=== PATIENT | female | born 1970 | race Caucasian/White ===

== ENCOUNTER → 2016-10-13 | Outpatient (CLI) | payer OTHER ==
[~2016-10-13] MED LIST: ASACOL HD800 M1 PO; ASACOL400 MG PO; CARAFATE1 G1 PO; CIPRO500 MG PO; CORTENEMA R; CORTIZONE-10 MAXIM11 R; DEPAKOTE500 M1 PO; GLUCOTROL5 MG PO; MAPAP PO; MULTIVITAMINS1 EACH PO; OMEPRAZOLE D/R20 MG PO; SYNTHROID,LEVO50 MCG PO; VITAMIN D32000 UNI1 PO; ZOCOR20 MG PO; ZOFRAN ODT8 MG PO; Zofran4 MG PO
== END | disposition home or self-care (01) ==
LOC: US 14:09
DX: M79.604 Pain in right leg (principal)

== ENCOUNTER → 2016-12-14 | Day surgery (SDC) | payer OTHER ==
[~2016-12-14] VITALS: Ht 157.4 cm; Wt 92.5 kg
--- NOTE | ~2016-12-14 | O ---
[place], [place] OPERATIVE NOTE NAME: АНДРЕЙ BERMUDEZ UNIT #: [id number] ROOM: DOCTOR: CAPO DOVERKRISTINA BIRTHDATE: [birth year] DOS: 12/14/2016 GASTROENDOSCOPIC REPORT INDICATIONS: A 46-year-old patient who has presented with chief complaint of history of ulcerative colitis, history of chronic gastritis. The patient has been on Carafate and omeprazole 20 mg b.i.d. and Carafate 1 g b.i.d. ALLERGIES: SULFA, ERYTHROMYCIN, AND PENICILLIN. PAST MEDICAL HISTORY: Ulcerative colitis, seizure, diabetes mellitus, hypothyroidism. PAST SURGICAL HISTORY: Tonsillectomy, adenoidectomy, and colectomy. Today's procedure part of investigation is panendoscopy plus biopsy for abnormal radiological findings recently and concerns about above. The patient off mesalamine. The patient continues with PPI and sucralfate therapy. Status post colostomy. PROCEDURE: Today's procedure part of investigation is panendoscopy plus biopsy. PREMEDICATION: Versed and Diprivan. SCOPE: Olympus forward-viewing gastroscope Q10 video. REPORT: After putting the patient in the left lateral position and after application of lubricant to the scope, the scope was introduced. Thereafter, under direct visualization, I advanced through the length of the esophagus without difficulty. Esophagus, cervical, thoracic and distal within normal limits. Gastric pouch was entered after a 2 cm hiatal hernia was encountered. Gastritis was noticed. This is mild and mostly concentrated in the antrum. Duodenal bulb was entered, pyloric ring within normal limits. Second and third part of duodenum normal. Air was suctioned out. Antral biopsy obtained. The patient extubated, tolerated procedure well. IMPRESSION: Mild gastritis, mostly concentrated in the antrum, status post biopsy, small hiatal hernia 2 cm size. Otherwise, normal gastric pouch, normal duodenum, normal esophagus. PLAN AND DISCUSSION: Continuation with omeprazole 20 mg 1 b.i.d. and Carafate 1 b.i.d., regular diet as tolerated. FOLLOWUP: As outpatient. Awaiting biopsy results. No concerns of pathology was noticed in upper GI tract otherwise. [place], [place] OPERATIVE NOTE NAME: АНДРЕЙ BERMUDEZ UNIT #: [id number] ROOM: DOCTOR: CAPO DOVER,KRISTINA BIRTHDATE: [birth year] KRISTINA SCANLON MD CM:OPRECORD:OPERATIVE NOTE 6 19 KRISTINA SCANLON MD 12/14/16 1120 interface
[2016-12-14 08:15] VITALS: BP 122/84
[2016-12-14 09:14] VITALS: BP 120/68
[2016-12-14 09:27] VITALS: BP 119/78
[2016-12-14 09:43] VITALS: BP 120/77
== END | disposition home or self-care (01) ==
LOC: SDC 12-08 15:30
DX: K29.50 Unspecified chronic gastritis without bleeding (principal); K44.9 Diaphragmatic hernia without obstruction or gangrene; E11.9 Type 2 diabetes mellitus without complications; K21.9 Gastro-esophageal reflux disease without esophagitis; E03.9 Hypothyroidism, unspecified; Z98.890 Other specified postprocedural states; Z90.49 Acquired absence of other specified parts of digestive tract; Z88.2 Allergy status to sulfonamides; Z88.1 Allergy status to other antibiotic agents; Z88.0 Allergy status to penicillin; Z87.19 Personal history of other diseases of the digestive system; E78.00 Pure hypercholesterolemia, unspecified; H91.90 Unspecified hearing loss, unspecified ear; J45.909 Unspecified asthma, uncomplicated; Z85.038 Personal history of other malignant neoplasm of large intestine; Z83.3 Family history of diabetes mellitus; Z82.49 Family history of ischemic heart disease and other diseases of the circulatory system

== ENCOUNTER 2017-03-04 17:46 | Emergency (ER) | payer OTHER ==
[~2017-03-04] VITALS: Ht 157.4 cm; Wt 90.7 kg
[2017-03-04] MEDS ORDERED: HORIZANT300 M1 PO (18:14)
[2017-03-04 18:30] LABS: BASO % 0.6 % (0.0-1.0); EOS % 0.6 % (1.0-4.0); HEMATOCRIT 36.3 % (37.0-47.0); HEMOGLOBIN 11.9 g/dl (12.0-16.0); LYMPH # 1.4 10*3/uL (1.3-4.4); LYMPH % 29.1 % (27.0-41.0); MEAN CELL VOLUME 90.5 fl (81.0-99.0); MEAN CORPUSCULAR HGB 29.7 pg (27.0-31.0); MEAN CORPUSCULAR HGB CONC 32.8 g/dl (33.0-37.0); MEAN PLATELET VOLUME 10.1 fl (9.6-12.3); MONO # 0.3 10*3/uL (0.1-1.0); MONO % 6.4 % (3.0-9.0); NEUT % 62.9 % (47.0-73.0); PLATELET COUNT AUTOMATED 168 10*3/uL (130-400); RED BLOOD COUNT 4.01 10*6/uL (4.10-5.10); WHITE BLOOD COUNT 4.8 10*3/uL (4.8-10.8)
[2017-03-04 18:46] LABS: ALKALINE PHOSPHATASE 172 U/L (45-117); BUN 13 mg/dl (7-24); CHLORIDE 109 mmol/L (98-107); CREATININE 0.89 mg/dL (0.55-1.02); POTASSIUM 3.8 mmol/L (3.5-5.1); SGOT/AST 15 IU/L (3-35); SGPT/ALT 17 U/L (12-78); SODIUM 143 mmol/L (136-145); TOTAL PROTEIN 6.7 gm/dL (6.4-8.2)
[2017-03-04 18:49] LABS: TROPONIN I < 0.015 ng/ml (<0.045)
== END 2017-03-04 21:22 | disposition home or self-care (01) ==
LOC: ED 17:46
PROVIDERS: Nurse Practitioner Family
DX: S40.012A Contusion of left shoulder, initial encounter (principal); S80.12XA Contusion of left lower leg, initial encounter; S00.532A Contusion of oral cavity, initial encounter; Z88.1 Allergy status to other antibiotic agents; Z88.0 Allergy status to penicillin; Z88.2 Allergy status to sulfonamides; Z79.899 Other long term (current) drug therapy; W10.8XXA Fall (on) (from) other stairs and steps, initial encounter; Y93.89 Activity, other specified; Y92.89 Other specified places as the place of occurrence of the external cause; Y99.8 Other external cause status

== ENCOUNTER → 2017-04-07 | Outpatient (CLI) | payer OTHER ==
[~2017-04-07] MED LIST changes: +HORIZANT300 M1 PO
== END | disposition home or self-care (01) ==
LOC: CT 00:42
DX: K76.89 Other specified diseases of liver (principal); K92.2 Gastrointestinal hemorrhage, unspecified; Z85.038 Personal history of other malignant neoplasm of large intestine; Z90.49 Acquired absence of other specified parts of digestive tract

== ENCOUNTER → 2017-10-05 | Outpatient (CLI) | payer OTHER | END | disposition home or self-care (01) | LOC: MAMMO 13:13 | DX: Z12.31 Encounter for screening mammogram for malignant neoplasm of breast (principal); Z85.038 Personal history of other malignant neoplasm of large intestine ==

== ENCOUNTER → 2017-11-01 | Day surgery (SDC) | payer OTHER ==
[~2017-11-01] VITALS: Ht 157.4 cm; Wt 99.8 kg
--- NOTE | ~2017-11-01 | O ---
[place], [place] OPERATIVE NOTE NAME: АНДРЕЙ BERMUDEZ UNIT #: [id number] ROOM: DOCTOR: CAPO DOVER,KRISTINA BIRTHDATE: [birth year] DOS: 11/01/2017 GASTROENDOSCOPIC REPORT The patient has presented with history of questionable Crohn's disease versus ulcerative colitis. For multiple years she was on mesalamine therapy. She eventually on her followup showed carcinoma in the colon. She received suspected total colectomy versus partial colectomy. She continues with some diarrhea. She has ostomy in place. She is following up with Dr. Stein with a PET scan and workup still continues. We have to stop the mesalamine therapy. The patient with history of gastritis, on Carafate and Prilosec. PROCEDURE: Today's procedure part of investigation is attempted colonoscopy, push enteroscopy. PREMEDICATION: Propofol. SCOPE: Olympus for forward and colonoscope. REPORT: After lubrication ostomy site, scope was introduced. Thereafter, under direct visualization, I advanced it was figured that the entire colon is removed and what the ostomy showing is an ileostomy with mucosa of the terminal ileum and is within normal limit and the scope was advanced about 60 cm with push enteroscopy. There was no evidence of bleeding. There was no evidence of pathology in the colon to consider presence of Crohn's disease or any other contributions of a small bowel pathology. Therefore, the patient extubated, tolerated procedure well. IMPRESSION: Status post total colectomy apparently, normal small bowel, history of colon cancer. PLAN AND DISCUSSION: The patient has been on Carafate and Prilosec while she was on mesalamine therapy, which is given her gastritis and issues related to the side effect of the mesalamine. Therefore, at this time, we are going to remove Carafate and she will be safe enough with Prilosec therapy. We do not need any further followup on her at this stage and PET scan and follow up with oncologist is going to continue, however. DIET: Going to be regular and no residual colonic anatomy is noticed on this endoscopic evaluation. [place], [place] OPERATIVE NOTE NAME: АНДРЕЙ BERMUDEZ UNIT #: [id number] ROOM: DOCTOR: CAPO DOVER,NASROLLAH BIRTHDATE: [birth year] KRISTINA SCANLON MD CM:J CARLOS:OPERATIVE NOTE [id number] KRISTINA SCANLON MD 11/01/17 1057 interface
[2017-11-01 09:28] VITALS: BP 135/79
[2017-11-01 10:25] VITALS: BP 141/100
[2017-11-01 10:55] VITALS: BP 109/69
== END | disposition home or self-care (01) ==
LOC: SDC 10-27 10:15
DX: C18.9 Malignant neoplasm of colon, unspecified (principal); R19.7 Diarrhea, unspecified; K51.90 Ulcerative colitis, unspecified, without complications; E11.9 Type 2 diabetes mellitus without complications; E78.00 Pure hypercholesterolemia, unspecified; K21.9 Gastro-esophageal reflux disease without esophagitis; J45.909 Unspecified asthma, uncomplicated; E07.9 Disorder of thyroid, unspecified; E66.09 Other obesity due to excess calories; Z98.890 Other specified postprocedural states; Z79.899 Other long term (current) drug therapy; Z88.0 Allergy status to penicillin; Z88.2 Allergy status to sulfonamides; Z98.0 Intestinal bypass and anastomosis status; Z68.41 Body mass index [BMI] 40.0-44.9, adult

== ENCOUNTER → 2018-02-06 | Outpatient (CLI) | payer OTHER ==
[~2018-02-06] MED LIST changes: +NEURONTIN300 MG PO
== END | disposition home or self-care (01) ==
LOC: MEDIPORT 04:09
DX: Z45.2 Encounter for adjustment and management of vascular access device (principal); Z88.1 Allergy status to other antibiotic agents; Z88.0 Allergy status to penicillin; Z88.2 Allergy status to sulfonamides

== ENCOUNTER → 2018-03-13 | Outpatient (CLI) | payer OTHER ==
[~2018-03-13] MED LIST changes: -NEURONTIN300 MG PO
== END | disposition home or self-care (01) ==
LOC: MEDIPORT 04:51
DX: Z45.2 Encounter for adjustment and management of vascular access device (principal); Z88.1 Allergy status to other antibiotic agents; Z88.0 Allergy status to penicillin; Z88.2 Allergy status to sulfonamides

== ENCOUNTER → 2018-04-10 | Outpatient (CLI) | payer OTHER | END | disposition home or self-care (01) | LOC: MEDIPORT 04:05 | DX: Z45.2 Encounter for adjustment and management of vascular access device (principal) ==

== ENCOUNTER 2018-04-19 09:59 | Emergency (ER) | payer OTHER ==
[~2018-04-19] VITALS: Ht 157.4 cm; Wt 102.1 kg
[2018-04-19] MEDS ORDERED: NEURONTIN300 MG PO (10:17)
== END 2018-04-19 11:27 | disposition home or self-care (01) ==
LOC: ED 09:59
DX: S49.91XA Unspecified injury of right shoulder and upper arm, initial encounter (principal); S79.911A Unspecified injury of right hip, initial encounter; Z88.0 Allergy status to penicillin; Z88.1 Allergy status to other antibiotic agents; Z88.2 Allergy status to sulfonamides; Z79.899 Other long term (current) drug therapy; W17.89XA Other fall from one level to another, initial encounter; Y93.89 Activity, other specified; Y92.242 Post office as the place of occurrence of the external cause; Y99.8 Other external cause status

== ENCOUNTER → 2018-05-10 | Outpatient (CLI) | payer OTHER ==
[~2018-05-10] MED LIST changes: +NEURONTIN300 MG PO
--- NOTE | 2018-05-10 08:27 | NUR ---
CLIENT AMBULATORY TO TREATMENT AREA FOR ROUTINE PORT FLUSH. PORT WAS PREPPED X 2 AND ACCESSED USING ASEPTIC TECHNIQUE. BRISK BLOOD RETURN WAS NOTED. PORT WAS FLUSHED WITH SALINE FOLLOWED BY HEPARIN. NEEDLE WAS WITHDRAWN AND A BANDAID APPLIED TO SITE. NO BLEEDING SEEN. CLIENT THEN AMBULATED FROM TREATMENT AREA IN STABLE CONDITION
== END | disposition home or self-care (01) ==
LOC: MEDIPORT 02:19
DX: Z45.2 Encounter for adjustment and management of vascular access device (principal)

== ENCOUNTER → 2018-06-14 | Outpatient (CLI) | payer OTHER | END | disposition home or self-care (01) | LOC: MEDIPORT 07:53 | DX: Z45.2 Encounter for adjustment and management of vascular access device (principal) ==

== ENCOUNTER → 2018-07-11 | Outpatient (CLI) | payer OTHER ==
--- NOTE | 2018-07-11 09:10 | NUR ---
PT HERE FOR MEDIPORT FLUSH PER ORDER. SITE ACCESSED WITH NONCORING NEEDLE. PROMPT BLOOD RETURN NOTED. FLUSHED WITH HEPARIN PER POLICY. TOLERATED WELL. NEEDLE REMOVED AND DRESSING APPLIED. RESCHEDULE FOR August AT 10 AM FOR NEXT FLUSH. VALENTÍN RIVAS RN
== END | disposition home or self-care (01) ==
LOC: MEDIPORT 08:49
DX: Z45.2 Encounter for adjustment and management of vascular access device (principal)

== ENCOUNTER → 2018-10-11 | Outpatient (CLI) | payer OTHER | END | disposition home or self-care (01) | LOC: MEDIPORT 08:23 | DX: Z45.2 Encounter for adjustment and management of vascular access device (principal) ==

== ENCOUNTER → 2018-11-09 | Outpatient (CLI) | payer OTHER ==
--- NOTE | 2018-11-09 10:05 | NUR ---
PATIENT AMBULATED INTO THE TREATMENT AREA WITH HER MOTHER. PATIENT'S MEDIPORT ACCESS WITH PROMPT BLOOD RETURN. FLUSHED WITH NORMAL SALINE AND THEN HEPARIN. D/C ACCESSED. SCHEDULED NEXT APPOINTMENT FOR NEXT MONTH. PATIENT AMBULATED TO EXIT. PATIENT D/C.
--- NOTE | 2018-11-09 11:44 | NUR ---
CALLED DR FERRERA'S OFFICE FOR A NEW SCRIPT FOR HER MEDIPORT FLUSH FOR NEXT MONTH. OFFICE STATED THEY WOULD EITHER FAX BEFORE THEN OR SEND WITH PATIENT AFTER HER NEXT DOCTOR'S APPOINTMEMT.
== END | disposition home or self-care (01) ==
LOC: MEDIPORT 09:53
DX: Z45.2 Encounter for adjustment and management of vascular access device (principal)

== ENCOUNTER → 2018-12-14 | Outpatient (CLI) | payer OTHER ==
--- NOTE | 2018-12-14 10:15 | NUR ---
PT MEDIPORT SITE WAS ACESSED AND FLUSHED ORDERED WITHOUT DIFFICULTY.
== END | disposition home or self-care (01) ==
LOC: MEDIPORT 10:00
DX: Z45.2 Encounter for adjustment and management of vascular access device (principal)

== ENCOUNTER → 2019-01-14 | Outpatient (CLI) | payer OTHER ==
--- NOTE | 2019-01-14 10:15 | NUR ---
PT HERE FOR MEDIPORT FLUSH ORDERED MONTHLY. [facility] [place]ED WITH NON-CORING NEEDLE BRCO1NH DIFFUCULTY. PROMPT BLOOD RETURN. HEPARIN FLUSH PER POLICY. NEEDLE REMOVED. DRESSING APPLIED. NEXT APPOINTMENT SCHEDULED. VALENTÍN RIVAS RN
== END | disposition home or self-care (01) ==
LOC: MEDIPORT 00:42
DX: Z45.2 Encounter for adjustment and management of vascular access device (principal)

== ENCOUNTER → 2019-02-11 | Outpatient (CLI) | payer OTHER ==
--- NOTE | 2019-02-11 09:54 | NUR ---
PT HERE FOR MEDIPORT FLUSH ORDERED. SITE ACCESSED WITH NONCORING NEEDLE. MEDIPORT FLUSH WITH HEPARIN PER POLICY. NEEDLE REMOVED. SITE ASYMPTOMATIC. DRESSING APPLIED. VALENTÍN RIVAS RN
== END | disposition home or self-care (01) ==
LOC: MEDIPORT 04:54
DX: Z45.2 Encounter for adjustment and management of vascular access device (principal)

== ENCOUNTER → 2019-03-11 | Outpatient (CLI) | payer OTHER ==
--- NOTE | 2019-03-11 10:01 | NUR ---
PATIENT HERE FOR MEDIPORT FLUSH ORDERED. [facility] [place] MED[place]ORT ACCESSED WITH NONCORING NEEDLE PER PP. HEPARIN FLUSH ORDERED. TOLERATED WELL. NEEDLE REMOVED. DRESSING APPLIED. VALENTÍN RIVAS RN
== END | disposition home or self-care (01) ==
LOC: MEDIPORT 00:55
DX: Z45.2 Encounter for adjustment and management of vascular access device (principal)

== ENCOUNTER → 2019-04-08 | Outpatient (CLI) | payer OTHER ==
--- NOTE | 2019-04-08 10:00 | NUR ---
Pt here for mediport flush as ordered. [facility] [place] mediport accessed with noncoring needle without diffuculty. Prompt blood return. FLUSHED with heparin per P&P. Needle removed dressing applied. Katherine Baltazar Rn
== END | disposition home or self-care (01) ==
LOC: MEDIPORT 00:52
DX: Z45.2 Encounter for adjustment and management of vascular access device (principal)

== ENCOUNTER → 2019-05-14 | Outpatient (CLI) | payer OTHER | END | disposition home or self-care (01) | LOC: MEDIPORT 02:07 | DX: Z45.2 Encounter for adjustment and management of vascular access device (principal) ==

== ENCOUNTER → 2019-06-11 | Outpatient (CLI) | payer OTHER | END | disposition home or self-care (01) | LOC: MEDIPORT 00:01 | DX: Z45.2 Encounter for adjustment and management of vascular access device (principal) ==

== ENCOUNTER → 2019-07-12 | Outpatient (CLI) | payer OTHER ==
--- NOTE | 2019-07-12 10:09 | NUR ---
1008- MEDIPORT ACCESSED WITH NON-CORING NEEDLE AFTER CLEANSING WITH CHLORPREP. PROMP BLOOD RETURN OBTAINED AND PORT FLUSHED PER POLICY. NON-CORING NEEDLE WITHDRAWN INTACT AND BANDAID APPLIED.
== END | disposition home or self-care (01) ==
LOC: MEDIPORT 06:41
DX: Z45.2 Encounter for adjustment and management of vascular access device (principal)

== ENCOUNTER → 2019-08-09 | Outpatient (CLI) | payer OTHER ==
--- NOTE | 2019-08-09 10:11 | NUR ---
PATIENT ARRIVED TO OPS WALKING W/ NO C/O. CONDITION STABLE. PATIENT FOR MEDIPORT FLUSH. PORT ACCESSED AND FLUSHED PER ORDER AND PER POLICY/PROCEDURE. SITE ASYMPTOMATIC. STERILE DRESSING APPLIED.
== END | disposition home or self-care (01) ==
LOC: MEDIPORT 00:11
DX: Z45.2 Encounter for adjustment and management of vascular access device (principal)

== ENCOUNTER → 2019-10-11 | Outpatient (CLI) | payer OTHER ==
--- NOTE | 2019-10-11 10:16 | NUR ---
PT HERE FOR MEDIPORT FLUSH ORDERED. HEPARIN PER POLICY AFTER LSC ACCESSED WITH NONCORING NEEDLE WITHOUT DIFFUCULTY. PROMTP BLOOD RETURN. FLUSHED WITH HEPARIN PER P&P. NEEDLE REMOVED. DRESSING APPLIED. PATIENT TOLERATED WELL. VALENTÍN RIVAS RN
== END | disposition home or self-care (01) ==
LOC: MEDIPORT 10:15
DX: Z45.2 Encounter for adjustment and management of vascular access device (principal)

== ENCOUNTER → 2019-11-08 | Outpatient (CLI) | payer OTHER ==
--- NOTE | 2019-11-08 13:07 | NUR ---
PT'S MEDIPORT ACCESSED. ASPERATED WITH BLOOD RETURN. FLUSHED SALINE 10 ML PT CONFIMRED OF TASTING SALINE. HEPERIN WAS FLUSHED INTO PORT AFTER SLAINE. PORT UNACCESSED AND BANDAID PUT OVER SITE. NO BLEEDING PRESENT. PT TOLERATED PROCEDURE. SCHEDULED NEXT FOR December AT NOON.
== END | disposition home or self-care (01) ==
LOC: MEDIPORT 02:06
DX: Z45.2 Encounter for adjustment and management of vascular access device (principal)

== ENCOUNTER → 2019-12-13 | Outpatient (CLI) | payer OTHER ==
--- NOTE | 2019-12-13 10:22 | NUR ---
1001- MEDIPORT ACCESSED WITH NON-CORING NEEDLE AFTER CLEANSING WITH CHLOIRAPREP. PROMPT BLOOD RETURN OBTAINED AND PORT FLUSHED PER POLICY. NON-CORING NEEDLE WITHDRAWN INTACT AND BANDAID TO SITE. DISCHARGED AMBULATORY.
== END ==
LOC: MEDIPORT 08:00
DX: Z45.2 Encounter for adjustment and management of vascular access device (principal); C80.1 Malignant (primary) neoplasm, unspecified

== ENCOUNTER → 2020-01-10 | Outpatient (CLI) | payer OTHER ==
--- NOTE | 2020-01-10 10:08 | NUR ---
1007- MEDIPORT ACCESSED WITH NON-CORING NEEDLE AFTER CLEANSING WITH CHLORAPREP. PROMPT BLOOD RETURN OBTAINED. FLUSHED PER POLICY AND NON-CORING NEEDLE WITHDRAWN INTACT. BANDAID TO SITE. DISCHARGED AMBULATORY.
== END | disposition home or self-care (01) ==
LOC: MEDIPORT 09:54
PROVIDERS: ATTEND Family Medicine
DX: Z45.2 Encounter for adjustment and management of vascular access device (principal); C80.1 Malignant (primary) neoplasm, unspecified

== ENCOUNTER → 2020-02-10 | Outpatient (CLI) | payer OTHER ==
--- NOTE | 2020-02-10 10:10 | NUR ---
TOLERATED ACCESSING, FLUSHING, AND REMOVAL WELL. MEDIPORT FOUND TO HAVE GOOD BLOOD RETURN. BAND-AIDE PLACED OVER ACCESS SITE.
== END | disposition home or self-care (01) ==
LOC: MEDIPORT 02:48
PROVIDERS: ATTEND Family Medicine
DX: Z45.2 Encounter for adjustment and management of vascular access device (principal); C80.1 Malignant (primary) neoplasm, unspecified

== ENCOUNTER → 2020-03-12 | Outpatient (CLI) | payer OTHER ==
--- NOTE | 2020-03-12 10:06 | NUR ---
1000- MEDIPORT ACCESSED AFTER CLEANSING WITH CHLORAPREP. UNABLE TO OBTAIN BLOOD RETURN BUT FLUSHED EASILY PER POLICY. NON-CORING NEEDLE WITHDRAWN INTACT AND BANDAID TO SITE.
== END | disposition home or self-care (01) ==
LOC: MEDIPORT 00:44
PROVIDERS: ATTEND Family Medicine
DX: Z45.2 Encounter for adjustment and management of vascular access device (principal); C80.1 Malignant (primary) neoplasm, unspecified

== ENCOUNTER → 2020-04-09 | Outpatient (CLI) | payer OTHER | END | disposition home or self-care (01) | LOC: MEDIPORT 03:13 | PROVIDERS: ATTEND Family Medicine | DX: Z45.2 Encounter for adjustment and management of vascular access device (principal); C80.1 Malignant (primary) neoplasm, unspecified ==

== ENCOUNTER → 2020-05-12 | Outpatient (CLI) | payer OTHER ==
--- NOTE | 2020-05-12 10:13 | NUR ---
1013- MEDIPORT ACCESSED WITH NON-CORING NEEDLE AFTER CLEANSING WITH CHLORAPREP. FLUSHED EASILY PER POLICY AND NON-CORING NEEDLE WITHDRAWN INTACT. BANDAID TO SITE AND DISCHARGED AMBULATORY.
== END | disposition home or self-care (01) ==
LOC: MEDIPORT 00:23
PROVIDERS: ATTEND Family Medicine
DX: Z45.2 Encounter for adjustment and management of vascular access device (principal); C80.1 Malignant (primary) neoplasm, unspecified

== ENCOUNTER → 2020-06-12 | Outpatient (CLI) | payer OTHER | END | disposition home or self-care (01) | LOC: MEDIPORT 06-09 10:00 | PROVIDERS: ATTEND Family Medicine | DX: Z45.2 Encounter for adjustment and management of vascular access device (principal); C80.1 Malignant (primary) neoplasm, unspecified ==

== ENCOUNTER → 2020-07-10 | Outpatient (CLI) | payer OTHER | END | disposition home or self-care (01) | LOC: MEDIPORT 02:09 | PROVIDERS: ATTEND Family Medicine | DX: C80.1 Malignant (primary) neoplasm, unspecified (principal) ==

== ENCOUNTER → 2020-08-11 | Outpatient (CLI) | payer OTHER | END | disposition home or self-care (01) | LOC: MEDIPORT 00:40 | PROVIDERS: ATTEND Family Medicine | DX: Z45.2 Encounter for adjustment and management of vascular access device (principal); C80.1 Malignant (primary) neoplasm, unspecified ==

== ENCOUNTER → 2020-09-08 | Outpatient (CLI) | payer OTHER | END | disposition home or self-care (01) | LOC: MEDIPORT 00:08 | PROVIDERS: ATTEND Family Medicine | DX: Z45.2 Encounter for adjustment and management of vascular access device (principal); C80.1 Malignant (primary) neoplasm, unspecified ==

== ENCOUNTER → 2020-10-13 | Outpatient (CLI) | payer OTHER | LOC: MEDIPORT 00:50 | PROVIDERS: ATTEND Family Medicine | DX: C80.1 Malignant (primary) neoplasm, unspecified (principal) ==

== ENCOUNTER → 2020-11-10 | Outpatient (CLI) | payer OTHER | END | disposition home or self-care (01) | LOC: MEDIPORT 00:28 | PROVIDERS: ATTEND Family Medicine | DX: Z45.2 Encounter for adjustment and management of vascular access device (principal); C80.1 Malignant (primary) neoplasm, unspecified ==

== ENCOUNTER 2020-12-09 15:27 | Emergency (ER) | payer OTHER | END 2020-12-09 17:13 | disposition home or self-care (01) | LOC: ED 15:27 | DX: Z43.3 Encounter for attention to colostomy (principal); Z79.899 Other long term (current) drug therapy; Z88.1 Allergy status to other antibiotic agents; Z88.0 Allergy status to penicillin; Z88.2 Allergy status to sulfonamides ==

== ENCOUNTER → 2020-12-11 | Outpatient (CLI) | payer OTHER | END | disposition home or self-care (01) | LOC: MEDIPORT 01:13 | PROVIDERS: ATTEND Family Medicine | DX: Z45.2 Encounter for adjustment and management of vascular access device (principal); C80.1 Malignant (primary) neoplasm, unspecified ==

== ENCOUNTER → 2021-01-08 | Outpatient (CLI) | payer OTHER | END | disposition home or self-care (01) | LOC: MEDIPORT 01-07 08:54 | PROVIDERS: ATTEND Family Medicine | DX: Z45.2 Encounter for adjustment and management of vascular access device (principal); C80.1 Malignant (primary) neoplasm, unspecified ==

== ENCOUNTER → 2021-02-05 | Outpatient (CLI) | payer OTHER | END | disposition home or self-care (01) | LOC: MEDIPORT 00:18 | PROVIDERS: ATTEND Family Medicine | DX: Z45.2 Encounter for adjustment and management of vascular access device (principal); C80.1 Malignant (primary) neoplasm, unspecified ==

== ENCOUNTER 2021-02-13 14:18 | Emergency (ER) | payer OTHER ==
[2021-02-13 14:36] LABS: BASO % 0.5 % (0.0-1.0); EOS # 0.1 10*3/uL (0.0-0.4); EOS % 0.9 % (1.0-4.0); HEMATOCRIT 44.3 % (37.0-47.0); LYMPH # 1.9 10*3/uL (1.3-4.4); LYMPH % 29.7 % (27.0-41.0); MEAN CELL VOLUME 92.7 fl (81.0-99.0); MEAN CORPUSCULAR HGB 29.9 pg (27.0-31.0); MEAN CORPUSCULAR HGB CONC 32.3 g/dl (33.0-37.0); MEAN PLATELET VOLUME 10.5 fl (9.6-12.3); MONO # 0.4 10*3/uL (0.1-1.0); MONO % 5.7 % (3.0-9.0); NEUT # 4.1 10*3/uL (2.3-7.9); NEUT % 62.4 % (47.0-73.0); PLATELET COUNT AUTOMATED 191 10*3/uL (130-400); RED BLOOD COUNT 4.78 10*6/uL (4.10-5.10); RED CELL DISTRI WIDTH 12.6 % (0-14.5); WHITE BLOOD COUNT 6.5 10*3/uL (4.8-10.8)
[2021-02-13 14:49] LABS: ACT PARTIAL THROMBO TIME 25.5 SECONDS (20.0-32.1)
[2021-02-13 14:52] LABS: ALBUMIN 3.3 gm/dl (3.1-4.5); ALKALINE PHOSPHATASE 115 U/L (45-117); BUN 22 mg/dl (7-24); CHLORIDE 107 mmol/L (98-107); CREATININE 0.94 mg/dL (0.55-1.02); POTASSIUM 3.7 mmol/L (3.5-5.1); SGOT/AST 7 IU/L (3-35); SGPT/ALT 14 U/L (12-78); SODIUM 141 mmol/L (136-145); TOTAL PROTEIN 7.2 gm/dL (6.4-8.2)
[2021-02-13 14:53] LABS: TROPONIN I < 0.015 ng/ml (<0.045)
== END 2021-02-13 17:11 | disposition home or self-care (01) ==
LOC: ED 14:18
PROVIDERS: Student in an Organized Health Care Education/Training Program
DX: R07.9 Chest pain, unspecified (principal); M79.605 Pain in left leg; M79.604 Pain in right leg; Z88.0 Allergy status to penicillin; Z88.1 Allergy status to other antibiotic agents; Z79.899 Other long term (current) drug therapy; W18.39XA Other fall on same level, initial encounter; Y93.89 Activity, other specified; Y92.89 Other specified places as the place of occurrence of the external cause; Y99.8 Other external cause status

== ENCOUNTER → 2021-03-12 | Outpatient (CLI) | payer OTHER | END | disposition home or self-care (01) | LOC: MEDIPORT 01:55 | PROVIDERS: ATTEND Family Medicine | DX: Z45.2 Encounter for adjustment and management of vascular access device (principal); C80.1 Malignant (primary) neoplasm, unspecified ==